=== PATIENT | male | born 1960 | race Caucasian/White ===

== ENCOUNTER 2021-11-25 17:34 | Emergency (ER) | payer OTHER | END 2021-11-25 18:56 | disposition home or self-care (01) | LOC: ER 17:34 | DX: A09 Infectious gastroenteritis and colitis, unspecified (principal) ==

== ENCOUNTER 2021-12-10 13:25 | Outpatient (CLI) | payer OTHER ==
[~2021-12-10 13:25] MED LIST: CIPROFLOXACIN HC5 ML OP; FLAGYL375 MG PO
== END 2021-12-10 13:45 | disposition home or self-care (01) ==
LOC: LAB 13:25
DX: M25.562 Pain in left knee (principal)